=== PATIENT | male | born 1965 | race Caucasian/White ===

== ENCOUNTER → 2017-02-17 | Outpatient (CLI) | payer MEDICARE ==
[~2017-02-17] MED LIST: 'XANAX1 MG PO; ALBUTEROL2.5 MG/0.5 INH; ASPIRIN ADULT L81 M1 PO; ATENOLOL50 M1 PO; FISH OIL500 M2 PO; FLUTICASON0.05 MG/AC NAS; LASIX40 MG PO; LISINOPRIL5 MG PO; METFORMIN1000 MG PO; MS CONTIN15 MG PO; NEURONTIN300 MG PO; PERCOCET 325 MG1 TA7 PO; PRILOSEC20 M1 PO; SIMVASTATIN40 MG PO; SYMBICORT1 AE1 INH; THE MEDICINE SH10 M1 PO
[2017-02-17 10:02] LABS: HEMOGLOBIN A1c 7.4 % (4.8-5.6)
[2017-02-19 12:07] LABS: TESTOSTERONE FREE, (DIRECT) 9.2 pg/mL (7.2-24.0)
== END | disposition home or self-care (01) ==
LOC: LAB 09:02
PROVIDERS: Internal Medicine
DX: E11.9 Type 2 diabetes mellitus without complications (principal)

== ENCOUNTER 2017-03-25 19:01 | Emergency (ER) | payer MEDICARE ==
[~2017-03-25] VITALS: Ht 172.7 cm; Wt 121.6 kg
[~2017-03-25 19:01] MED LIST changes: -CEFADROXIL500 M1 PO; -LUNESTA1 M1 PO; -VITAMIN D33000 UNIT PO
[2017-03-25] MEDS ORDERED: VITAMIN D33000 UNIT PO (19:12)
[2017-03-25] MEDS ORDERED: LUNESTA1 M1 PO (19:13)
[2017-03-25] MEDS ORDERED: CEFADROXIL500 M1 PO (19:58)
== END 2017-03-25 20:39 | disposition home or self-care (01) ==
LOC: ED 19:01
DX: S61.213A Laceration without foreign body of left middle finger without damage to nail, initial encounter (principal); F17.200 Nicotine dependence, unspecified, uncomplicated; Z79.82 Long term (current) use of aspirin; Z79.899 Other long term (current) drug therapy; Z88.0 Allergy status to penicillin; Z88.2 Allergy status to sulfonamides; Z91.030 Bee allergy status; X58.XXXA Exposure to other specified factors, initial encounter; Y93.89 Activity, other specified; Y92.9 Unspecified place or not applicable; Y99.9 Unspecified external cause status

== ENCOUNTER → 2017-03-25 | Outpatient (CLI) | payer MEDICARE ==
[~2017-03-25] MED LIST changes: +CEFADROXIL500 M1 PO; +LUNESTA1 M1 PO; +VITAMIN D33000 UNIT PO
== END | disposition home or self-care (01) ==
LOC: RESCLI 03:45
DX: J44.9 Chronic obstructive pulmonary disease, unspecified (principal); E11.9 Type 2 diabetes mellitus without complications; Z88.0 Allergy status to penicillin; Z91.038 Other insect allergy status

== ENCOUNTER → 2017-04-29 | Outpatient (CLI) | payer MEDICARE ==
[~2017-04-29] MED LIST changes: +CEFADROXIL500 M1 PO; +LUNESTA1 M1 PO; +VITAMIN D33000 UNIT PO
== END | disposition home or self-care (01) ==
LOC: RESCLI 02:00
DX: E11.9 Type 2 diabetes mellitus without complications (principal); E29.1 Testicular hypofunction; F41.9 Anxiety disorder, unspecified; Z88.0 Allergy status to penicillin; Z88.2 Allergy status to sulfonamides; Z88.1 Allergy status to other antibiotic agents; Z91.030 Bee allergy status

== ENCOUNTER → 2017-07-01 | Outpatient (CLI) | payer MEDICARE | END | disposition home or self-care (01) | LOC: RESCLI 04:44 | DX: E11.9 Type 2 diabetes mellitus without complications (principal); E29.1 Testicular hypofunction; S83.92XA Sprain of unspecified site of left knee, initial encounter; X58.XXXA Exposure to other specified factors, initial encounter; Y93.89 Activity, other specified; Y92.89 Other specified places as the place of occurrence of the external cause; Y99.8 Other external cause status ==

== ENCOUNTER → 2017-08-18 | Outpatient (CLI) | payer MEDICARE | END | disposition home or self-care (01) | LOC: LAB 08:51 | DX: E11.9 Type 2 diabetes mellitus without complications (principal) ==

== ENCOUNTER → 2017-08-25 | Outpatient (CLI) | payer MEDICARE | END | disposition home or self-care (01) | LOC: RESCLI 01:30 | DX: J44.9 Chronic obstructive pulmonary disease, unspecified (principal); E11.9 Type 2 diabetes mellitus without complications; I25.10 Atherosclerotic heart disease of native coronary artery without angina pectoris; I10 Essential (primary) hypertension; E78.5 Hyperlipidemia, unspecified; K21.9 Gastro-esophageal reflux disease without esophagitis; F17.200 Nicotine dependence, unspecified, uncomplicated ==

== ENCOUNTER → 2017-09-02 | Outpatient (CLI) | payer MEDICARE | END | disposition home or self-care (01) | LOC: WOUNDCARE 06:45 → RESCLI 06:45 | DX: Z23 Encounter for immunization (principal); E11.9 Type 2 diabetes mellitus without complications; F41.9 Anxiety disorder, unspecified; E78.5 Hyperlipidemia, unspecified; Z88.0 Allergy status to penicillin; Z88.2 Allergy status to sulfonamides; Z88.1 Allergy status to other antibiotic agents; Z91.038 Other insect allergy status ==

== ENCOUNTER → 2017-11-25 | Outpatient (CLI) | payer MEDICARE | END | disposition home or self-care (01) | LOC: RESCLI 01:01 | DX: E11.9 Type 2 diabetes mellitus without complications (principal); I10 Essential (primary) hypertension; J44.9 Chronic obstructive pulmonary disease, unspecified; E78.5 Hyperlipidemia, unspecified; J06.9 Acute upper respiratory infection, unspecified; F41.9 Anxiety disorder, unspecified; F17.210 Nicotine dependence, cigarettes, uncomplicated ==

== ENCOUNTER → 2017-12-29 | Outpatient (CLI) | payer MEDICARE | END | disposition home or self-care (01) | LOC: LAB 08:43 | DX: E11.9 Type 2 diabetes mellitus without complications (principal) ==

== ENCOUNTER → 2018-01-20 | Outpatient (CLI) | payer MEDICARE | END | disposition home or self-care (01) | LOC: RESCLI 01:30 | DX: J44.9 Chronic obstructive pulmonary disease, unspecified (principal); E11.9 Type 2 diabetes mellitus without complications; I10 Essential (primary) hypertension; E29.1 Testicular hypofunction; J06.9 Acute upper respiratory infection, unspecified; F41.9 Anxiety disorder, unspecified; F17.200 Nicotine dependence, unspecified, uncomplicated; Z88.0 Allergy status to penicillin ==

== ENCOUNTER → 2018-04-14 | Outpatient (CLI) | payer MEDICARE | END | disposition home or self-care (01) | LOC: RESCLI 04:27 | DX: J44.9 Chronic obstructive pulmonary disease, unspecified (principal); J06.9 Acute upper respiratory infection, unspecified; E11.9 Type 2 diabetes mellitus without complications; I10 Essential (primary) hypertension; E78.5 Hyperlipidemia, unspecified; E29.1 Testicular hypofunction; F41.9 Anxiety disorder, unspecified; G47.30 Sleep apnea, unspecified ==

== ENCOUNTER → 2018-09-18 | Outpatient (CLI) | payer OTHER ==
[2018-09-18 10:10] LABS: HEMATOCRIT 46.3 % (42.0-52.0); HEMOGLOBIN 15.5 g/dl (14.0-18.0); MEAN CELL VOLUME 88.5 fl (80.0-94.0); MEAN CORPUSCULAR HGB 29.6 pg (27.0-31.0); MEAN CORPUSCULAR HGB CONC 33.5 g/dl (33.0-37.0); MEAN PLATELET VOLUME 9.8 fl (9.6-12.3); RED BLOOD COUNT 5.23 10*6/uL (4.50-5.90); RED CELL DISTRI WIDTH 12.6 % (0-14.5); WHITE BLOOD COUNT 7.8 10*3/uL (4.8-10.8)
[2018-09-18 10:38] LABS: ALKALINE PHOSPHATASE 94 U/L (45-117); BUN 13 mg/dl (7-24); CHLORIDE 100 mmol/L (98-107); CHOLESTEROL 130 mg/dL (<200); CREATININE 0.98 mg/dL (0.70-1.30); HDL CHOLESTEROL 26 mg/dl (40-60); LDL CHOLESTEROL 74 mg/dL (9-159); POTASSIUM 3.7 mmol/L (3.5-5.1); SGOT/AST 24 IU/L (3-35); SGPT/ALT 38 U/L (12-78); SODIUM 138 mmol/L (136-145); TOTAL PROTEIN 7.1 gm/dL (6.4-8.2); TRIGLYCERIDES 149 mg/dl (<150); VLDL CHOLESTEROL 30 mg/dL (6-40)
== END | disposition home or self-care (01) ==
LOC: LAB 09:22
PROVIDERS: Student in an Organized Health Care Education/Training Program
DX: E11.9 Type 2 diabetes mellitus without complications (principal); E78.5 Hyperlipidemia, unspecified

== ENCOUNTER → 2019-01-06 | Outpatient (CLI) | payer OTHER | END | disposition home or self-care (01) | LOC: RESCLI 01:28 | DX: I11.0 Hypertensive heart disease with heart failure (principal); I50.9 Heart failure, unspecified; J44.9 Chronic obstructive pulmonary disease, unspecified; E78.5 Hyperlipidemia, unspecified; E11.42 Type 2 diabetes mellitus with diabetic polyneuropathy; K21.9 Gastro-esophageal reflux disease without esophagitis; I25.10 Atherosclerotic heart disease of native coronary artery without angina pectoris; F33.9 Major depressive disorder, recurrent, unspecified; J30.2 Other seasonal allergic rhinitis; G47.33 Obstructive sleep apnea (adult) (pediatric); M54.9 Dorsalgia, unspecified; G89.29 Other chronic pain; E55.9 Vitamin D deficiency, unspecified; F17.210 Nicotine dependence, cigarettes, uncomplicated; Z79.82 Long term (current) use of aspirin; Z79.899 Other long term (current) drug therapy; Z88.0 Allergy status to penicillin; Z88.2 Allergy status to sulfonamides; Z91.030 Bee allergy status ==

== ENCOUNTER → 2019-05-26 | Outpatient (CLI) | payer OTHER ==
[2019-05-26 08:46] LABS: BASO % 0.5 % (0.0-1.0); EOS # 0.4 10*3/uL (0.0-0.4); EOS % 4.7 % (1.0-4.0); HEMATOCRIT 42.7 % (42.0-52.0); HEMOGLOBIN 14.2 g/dl (14.0-18.0); LYMPH # 2.7 10*3/uL (1.3-4.4); LYMPH % 35.6 % (27.0-41.0); MEAN CELL VOLUME 91.2 fl (80.0-94.0); MEAN CORPUSCULAR HGB 30.3 pg (27.0-31.0); MEAN CORPUSCULAR HGB CONC 33.3 g/dl (33.0-37.0); MONO # 0.6 10*3/uL (0.1-1.0); MONO % 7.9 % (3.0-9.0); NEUT # 3.8 10*3/uL (2.3-7.9); NEUT % 50.2 % (47.0-73.0); PLATELET COUNT AUTOMATED 173 10*3/uL (130-400); RED BLOOD COUNT 4.68 10*6/uL (4.50-5.90); WHITE BLOOD COUNT 7.5 10*3/uL (4.8-10.8)
[2019-05-26 09:17] LABS: BUN 16 mg/dl (7-24); CHLORIDE 103 mmol/L (98-107); CHOLESTEROL 121 mg/dL (<200); HDL CHOLESTEROL 19 mg/dl (40-60); POTASSIUM 3.9 mmol/L (3.5-5.1); SODIUM 138 mmol/L (136-145); TRIGLYCERIDES 480 mg/dl (<150)
== END | disposition home or self-care (01) ==
LOC: LAB 08:10
PROVIDERS: Internal Medicine
DX: E55.9 Vitamin D deficiency, unspecified (principal); I11.0 Hypertensive heart disease with heart failure; I50.9 Heart failure, unspecified; I25.10 Atherosclerotic heart disease of native coronary artery without angina pectoris; E11.9 Type 2 diabetes mellitus without complications; E78.5 Hyperlipidemia, unspecified; Z79.899 Other long term (current) drug therapy

== ENCOUNTER → 2019-06-03 | Outpatient (CLI) | payer OTHER | END | disposition home or self-care (01) | LOC: RESCLI 02:30 | DX: E11.40 Type 2 diabetes mellitus with diabetic neuropathy, unspecified (principal); I25.10 Atherosclerotic heart disease of native coronary artery without angina pectoris; I10 Essential (primary) hypertension; G47.33 Obstructive sleep apnea (adult) (pediatric); F41.9 Anxiety disorder, unspecified; J44.9 Chronic obstructive pulmonary disease, unspecified; K21.9 Gastro-esophageal reflux disease without esophagitis; J30.2 Other seasonal allergic rhinitis; E55.9 Vitamin D deficiency, unspecified; E78.1 Pure hyperglyceridemia; E66.9 Obesity, unspecified; I11.0 Hypertensive heart disease with heart failure; I50.9 Heart failure, unspecified; Z79.4 Long term (current) use of insulin; Z79.899 Other long term (current) drug therapy; Z91.038 Other insect allergy status ==

== ENCOUNTER → 2019-09-23 | Outpatient (CLI) | payer OTHER | END | disposition home or self-care (01) | LOC: RESCLI 00:37 | DX: I25.10 Atherosclerotic heart disease of native coronary artery without angina pectoris (principal); E78.1 Pure hyperglyceridemia; G89.29 Other chronic pain; K21.9 Gastro-esophageal reflux disease without esophagitis; I11.0 Hypertensive heart disease with heart failure; I50.9 Heart failure, unspecified; E55.9 Vitamin D deficiency, unspecified; E11.40 Type 2 diabetes mellitus with diabetic neuropathy, unspecified; F41.9 Anxiety disorder, unspecified; J44.9 Chronic obstructive pulmonary disease, unspecified; J30.2 Other seasonal allergic rhinitis; E66.01 Morbid (severe) obesity due to excess calories; B02.9 Zoster without complications; F17.200 Nicotine dependence, unspecified, uncomplicated; Z91.038 Other insect allergy status; Z79.899 Other long term (current) drug therapy ==

== ENCOUNTER → 2019-10-25 | Outpatient (CLI) | payer OTHER ==
[2019-10-25 08:51] LABS: BASO % 0.5 % (0.0-1.0); EOS # 0.2 10*3/uL (0.0-0.4); EOS % 2.2 % (1.0-4.0); HEMOGLOBIN 14.9 g/dl (14.0-18.0); LYMPH # 3.1 10*3/uL (1.3-4.4); LYMPH % 39.9 % (27.0-41.0); MEAN CELL VOLUME 91.5 fl (80.0-94.0); MEAN CORPUSCULAR HGB 30.3 pg (27.0-31.0); MEAN CORPUSCULAR HGB CONC 33.1 g/dl (33.0-37.0); MEAN PLATELET VOLUME 10.2 fl (9.6-12.3); MONO # 0.6 10*3/uL (0.1-1.0); MONO % 7.5 % (3.0-9.0); NEUT # 3.8 10*3/uL (2.3-7.9); NEUT % 49.3 % (47.0-73.0); PLATELET COUNT AUTOMATED 193 10*3/uL (130-400); RED BLOOD COUNT 4.92 10*6/uL (4.50-5.90); RED CELL DISTRI WIDTH 12.2 % (0-14.5); WHITE BLOOD COUNT 7.7 10*3/uL (4.8-10.8)
[2019-10-25 09:30] LABS: ALBUMIN 3.8 gm/dl (3.1-4.5); ALKALINE PHOSPHATASE 104 U/L (45-117); BUN 13 mg/dl (7-24); CHLORIDE 102 mmol/L (98-107); CHOLESTEROL 128 mg/dL (<200); CREATININE 1.03 mg/dL (0.70-1.30); HDL CHOLESTEROL 24 mg/dl (40-60); LDL CHOLESTEROL 73 mg/dL (9-159); POTASSIUM 3.5 mmol/L (3.5-5.1); SGOT/AST 27 IU/L (3-35); SGPT/ALT 45 U/L (12-78); SODIUM 138 mmol/L (136-145); TRIGLYCERIDES 155 mg/dl (<150); VLDL CHOLESTEROL 31 mg/dL (6-40)
== END | disposition home or self-care (01) ==
LOC: LAB 08:08
PROVIDERS: Student in an Organized Health Care Education/Training Program
DX: E11.40 Type 2 diabetes mellitus with diabetic neuropathy, unspecified (principal); E78.1 Pure hyperglyceridemia; E55.9 Vitamin D deficiency, unspecified

== ENCOUNTER → 2019-10-28 | Outpatient (CLI) | payer OTHER | END | disposition home or self-care (01) | LOC: RESCLI 00:55 | DX: I11.0 Hypertensive heart disease with heart failure (principal); I50.9 Heart failure, unspecified; J44.9 Chronic obstructive pulmonary disease, unspecified; E78.1 Pure hyperglyceridemia; F41.9 Anxiety disorder, unspecified; K21.9 Gastro-esophageal reflux disease without esophagitis; E55.9 Vitamin D deficiency, unspecified; I25.10 Atherosclerotic heart disease of native coronary artery without angina pectoris; G89.29 Other chronic pain; J30.2 Other seasonal allergic rhinitis; E11.40 Type 2 diabetes mellitus with diabetic neuropathy, unspecified; Z91.038 Other insect allergy status; Z79.899 Other long term (current) drug therapy; Z88.0 Allergy status to penicillin; Z88.8 Allergy status to other drugs, medicaments and biological substances ==

== ENCOUNTER → 2020-05-11 | Outpatient (CLI) | payer OTHER ==
[2020-05-11 09:50] LABS: BASO # 0.1 10*3/uL (0.0-0.1); BASO % 0.6 % (0.0-1.0); EOS # 0.2 10*3/uL (0.0-0.4); EOS % 2.7 % (1.0-4.0); HEMATOCRIT 43.1 % (42.0-52.0); LYMPH # 2.6 10*3/uL (1.3-4.4); MEAN CELL VOLUME 90.7 fl (80.0-94.0); MEAN CORPUSCULAR HGB 30.3 pg (27.0-31.0); MEAN CORPUSCULAR HGB CONC 33.4 g/dl (33.0-37.0); MEAN PLATELET VOLUME 10.4 fl (9.6-12.3); MONO # 0.7 10*3/uL (0.1-1.0); MONO % 8.8 % (3.0-9.0); NEUT # 4.2 10*3/uL (2.3-7.9); NEUT % 53.7 % (47.0-73.0); PLATELET COUNT AUTOMATED 180 10*3/uL (130-400); RED BLOOD COUNT 4.75 10*6/uL (4.50-5.90); WHITE BLOOD COUNT 7.8 10*3/uL (4.8-10.8)
[2020-05-11 10:39] LABS: ALBUMIN 3.8 gm/dl (3.1-4.5); ALKALINE PHOSPHATASE 112 U/L (45-117); BUN 12 mg/dl (7-24); CHLORIDE 104 mmol/L (98-107); CHOLESTEROL 135 mg/dL (<200); CREATININE 0.93 mg/dL (0.70-1.30); HDL CHOLESTEROL 21 mg/dl (40-60); LDL CHOLESTEROL 45 mg/dL (9-159); POTASSIUM 3.9 mmol/L (3.5-5.1); SGOT/AST 30 IU/L (3-35); SGPT/ALT 48 U/L (12-78); SODIUM 140 mmol/L (136-145); TOTAL PROTEIN 6.9 gm/dL (6.4-8.2); TRIGLYCERIDES 343 mg/dl (<150); VLDL CHOLESTEROL 69 mg/dL (6-40)
== END | disposition home or self-care (01) ==
LOC: LAB 08:38
PROVIDERS: Internal Medicine
DX: I10 Essential (primary) hypertension (principal); Z79.899 Other long term (current) drug therapy

== ENCOUNTER → 2020-05-12 | Outpatient (CLI) | payer OTHER | END | disposition home or self-care (01) | LOC: RESCLI 01:18 | DX: B02.9 Zoster without complications (principal); J44.9 Chronic obstructive pulmonary disease, unspecified; F41.9 Anxiety disorder, unspecified; G89.29 Other chronic pain; E11.40 Type 2 diabetes mellitus with diabetic neuropathy, unspecified; I25.10 Atherosclerotic heart disease of native coronary artery without angina pectoris; E55.9 Vitamin D deficiency, unspecified; J30.2 Other seasonal allergic rhinitis; I11.0 Hypertensive heart disease with heart failure; I50.9 Heart failure, unspecified; K21.9 Gastro-esophageal reflux disease without esophagitis; E78.1 Pure hyperglyceridemia; M25.559 Pain in unspecified hip; Z91.038 Other insect allergy status; Z79.899 Other long term (current) drug therapy; Z79.84 Long term (current) use of oral hypoglycemic drugs; Z79.82 Long term (current) use of aspirin; Z88.8 Allergy status to other drugs, medicaments and biological substances; F17.200 Nicotine dependence, unspecified, uncomplicated ==

== ENCOUNTER → 2020-07-04 | Outpatient (CLI) | payer OTHER | END | disposition home or self-care (01) | LOC: RESCLI 01:46 | PROVIDERS: ATTEND Internal Medicine | DX: J44.1 Chronic obstructive pulmonary disease with (acute) exacerbation (principal); I25.10 Atherosclerotic heart disease of native coronary artery without angina pectoris; E55.9 Vitamin D deficiency, unspecified; J30.2 Other seasonal allergic rhinitis; I11.0 Hypertensive heart disease with heart failure; I50.9 Heart failure, unspecified; K21.9 Gastro-esophageal reflux disease without esophagitis; E78.1 Pure hyperglyceridemia; B02.9 Zoster without complications; G89.29 Other chronic pain; M25.559 Pain in unspecified hip; F41.9 Anxiety disorder, unspecified; E11.40 Type 2 diabetes mellitus with diabetic neuropathy, unspecified; F17.200 Nicotine dependence, unspecified, uncomplicated; J44.9 Chronic obstructive pulmonary disease, unspecified; Z91.038 Other insect allergy status; Z79.82 Long term (current) use of aspirin; Z79.899 Other long term (current) drug therapy; Z88.8 Allergy status to other drugs, medicaments and biological substances; Z98.890 Other specified postprocedural states ==

== ENCOUNTER → 2020-10-09 | Outpatient (CLI) | payer OTHER ==
[2020-10-09 09:22] LABS: BILIRUBIN Negative (Negative); BLOOD Trace-Lysed (Negative); CLARITY Clear (Clear); COLOR Yellow (Yellow); GLUCOSE Negative (Negative); KETONE Negative (Negative); LEUKO ESTERASE Negative (Negative); NITRITE Negative (Negative); PH 5.5 (4.5-8.0); SPECIFIC GRAVITY 1.015 (1.001-1.030)
[2020-10-09 09:31] LABS: ALBUMIN 3.7 gm/dl (3.1-4.5); ALKALINE PHOSPHATASE 123 U/L (45-117); BUN 17 mg/dl (7-24); CHLORIDE 101 mmol/L (98-107); CREATININE 1.01 mg/dL (0.70-1.30); SGOT/AST 21 IU/L (3-35); SGPT/ALT 41 U/L (12-78); SODIUM 136 mmol/L (136-145); TOTAL PROTEIN 7.2 gm/dL (6.4-8.2)
[2020-10-09 09:39] LABS: WBC 0-2 wbc/hpf (0-5)
== END | disposition home or self-care (01) ==
LOC: LAB 08:38
PROVIDERS: ATTEND Internal Medicine
DX: E11.40 Type 2 diabetes mellitus with diabetic neuropathy, unspecified (principal)

== ENCOUNTER → 2021-01-12 | Outpatient (CLI) | payer OTHER | END | disposition home or self-care (01) | LOC: RESCLI 01:11 | PROVIDERS: ATTEND Internal Medicine | DX: E11.65 Type 2 diabetes mellitus with hyperglycemia (principal); G62.9 Polyneuropathy, unspecified; I11.0 Hypertensive heart disease with heart failure; I25.10 Atherosclerotic heart disease of native coronary artery without angina pectoris; J44.9 Chronic obstructive pulmonary disease, unspecified; K21.9 Gastro-esophageal reflux disease without esophagitis; E66.01 Morbid (severe) obesity due to excess calories; E78.5 Hyperlipidemia, unspecified; I50.9 Heart failure, unspecified; F17.210 Nicotine dependence, cigarettes, uncomplicated; Z71.6 Tobacco abuse counseling; Z68.41 Body mass index [BMI] 40.0-44.9, adult; Z95.0 Presence of cardiac pacemaker; Z79.4 Long term (current) use of insulin; Z79.82 Long term (current) use of aspirin; Z79.899 Other long term (current) drug therapy; Z88.0 Allergy status to penicillin; Z88.8 Allergy status to other drugs, medicaments and biological substances ==

== ENCOUNTER → 2021-02-02 | Outpatient (CLI) | payer OTHER ==
[2021-02-02 07:30] LABS: BASO # 0.1 10*3/uL (0.0-0.1); BASO % 0.7 % (0.0-1.0); EOS # 0.2 10*3/uL (0.0-0.4); EOS % 2.2 % (1.0-4.0); LYMPH # 2.9 10*3/uL (1.3-4.4); LYMPH % 40.6 % (27.0-41.0); MEAN CORPUSCULAR HGB 30.5 pg (27.0-31.0); MEAN CORPUSCULAR HGB CONC 33.9 g/dl (33.0-37.0); MEAN PLATELET VOLUME 9.7 fl (9.6-12.3); MONO # 0.6 10*3/uL (0.1-1.0); MONO % 8.1 % (3.0-9.0); NEUT # 3.4 10*3/uL (2.3-7.9); NEUT % 47.7 % (47.0-73.0); PLATELET COUNT AUTOMATED 192 10*3/uL (130-400); RED BLOOD COUNT 5.11 10*6/uL (4.50-5.90); RED CELL DISTRI WIDTH 12.6 % (0-14.5); WHITE BLOOD COUNT 7.2 10*3/uL (4.8-10.8)
[2021-02-02 08:00] LABS: ALBUMIN 3.7 gm/dl (3.1-4.5); BUN 18 mg/dl (7-24); CHLORIDE 100 mmol/L (98-107); CREATININE 1.05 mg/dL (0.70-1.30); POTASSIUM 3.9 mmol/L (3.5-5.1); SGOT/AST 19 IU/L (3-35); SGPT/ALT 43 U/L (12-78); SODIUM 135 mmol/L (136-145)
[2021-02-02 08:11] LABS: ALKALINE PHOSPHATASE 118 U/L (45-117); CHOLESTEROL 130 mg/dL (<200); HDL CHOLESTEROL 23 mg/dl (40-60); TRIGLYCERIDES 471 mg/dl (<150)
[2021-02-02 08:26] LABS: VITAMIN D, 25-HYDROXY 31.8 ng/mL (30-100)
== END | disposition home or self-care (01) ==
LOC: LAB 07:12
PROVIDERS: Hospitalist; ATTEND Internal Medicine Nephrology
DX: E11.65 Type 2 diabetes mellitus with hyperglycemia (principal); E55.9 Vitamin D deficiency, unspecified

== ENCOUNTER → 2021-02-06 | Outpatient (CLI) | payer OTHER | END | disposition home or self-care (01) | LOC: RESCLI 00:27 | PROVIDERS: ATTEND Internal Medicine | DX: G89.29 Other chronic pain (principal); J44.9 Chronic obstructive pulmonary disease, unspecified; F41.9 Anxiety disorder, unspecified; E11.40 Type 2 diabetes mellitus with diabetic neuropathy, unspecified; I25.10 Atherosclerotic heart disease of native coronary artery without angina pectoris; E55.9 Vitamin D deficiency, unspecified; J30.2 Other seasonal allergic rhinitis; I10 Essential (primary) hypertension; K21.9 Gastro-esophageal reflux disease without esophagitis; E78.1 Pure hyperglyceridemia; M25.559 Pain in unspecified hip; G62.9 Polyneuropathy, unspecified; E11.65 Type 2 diabetes mellitus with hyperglycemia; Z79.82 Long term (current) use of aspirin; Z91.038 Other insect allergy status; Z79.899 Other long term (current) drug therapy; Z95.1 Presence of aortocoronary bypass graft; Z98.890 Other specified postprocedural states; Z88.0 Allergy status to penicillin ==

== ENCOUNTER → 2021-02-13 | Outpatient (CLI) | payer OTHER | END | disposition home or self-care (01) | LOC: RESCLI 02:12 | PROVIDERS: ATTEND Emergency Medicine | DX: E11.65 Type 2 diabetes mellitus with hyperglycemia (principal); G62.9 Polyneuropathy, unspecified; I10 Essential (primary) hypertension; I25.10 Atherosclerotic heart disease of native coronary artery without angina pectoris; J44.9 Chronic obstructive pulmonary disease, unspecified; K21.9 Gastro-esophageal reflux disease without esophagitis; E66.01 Morbid (severe) obesity due to excess calories; F17.210 Nicotine dependence, cigarettes, uncomplicated; E78.1 Pure hyperglyceridemia; J30.2 Other seasonal allergic rhinitis; F32.9 Major depressive disorder, single episode, unspecified; E55.9 Vitamin D deficiency, unspecified; Z79.4 Long term (current) use of insulin; Z68.41 Body mass index [BMI] 40.0-44.9, adult; Z95.0 Presence of cardiac pacemaker; Z71.6 Tobacco abuse counseling; Z79.899 Other long term (current) drug therapy; Z79.82 Long term (current) use of aspirin; Z88.0 Allergy status to penicillin; Z88.8 Allergy status to other drugs, medicaments and biological substances; Z91.030 Bee allergy status ==

== ENCOUNTER → 2021-03-21 | Outpatient (CLI) | payer OTHER | END | disposition home or self-care (01) | LOC: RESCLI 03:24 | PROVIDERS: ATTEND Internal Medicine | DX: E11.65 Type 2 diabetes mellitus with hyperglycemia (principal); G62.9 Polyneuropathy, unspecified; I10 Essential (primary) hypertension; J44.9 Chronic obstructive pulmonary disease, unspecified; K21.9 Gastro-esophageal reflux disease without esophagitis; F17.210 Nicotine dependence, cigarettes, uncomplicated; E78.1 Pure hyperglyceridemia; J30.2 Other seasonal allergic rhinitis; E55.9 Vitamin D deficiency, unspecified; I25.10 Atherosclerotic heart disease of native coronary artery without angina pectoris; F32.9 Major depressive disorder, single episode, unspecified; G89.29 Other chronic pain; E66.9 Obesity, unspecified; Z79.4 Long term (current) use of insulin; Z95.0 Presence of cardiac pacemaker; Z71.6 Tobacco abuse counseling; Z91.030 Bee allergy status; Z98.890 Other specified postprocedural states; Z95.1 Presence of aortocoronary bypass graft; Z88.0 Allergy status to penicillin; Z88.8 Allergy status to other drugs, medicaments and biological substances ==

== ENCOUNTER → 2021-10-08 | Outpatient (CLI) | payer OTHER ==
[2021-10-08 07:35] LABS: BASO # 0.1 10*3/uL (0.0-0.1); BASO % 0.9 % (0.0-1.0); EOS # 0.1 10*3/uL (0.0-0.4); EOS % 1.9 % (1.0-4.0); HEMATOCRIT 49.3 % (42.0-52.0); LYMPH # 2.7 10*3/uL (1.3-4.4); LYMPH % 40.4 % (27.0-41.0); MEAN CELL VOLUME 90.3 fl (80.0-94.0); MEAN CORPUSCULAR HGB 30.6 pg (27.0-31.0); MEAN CORPUSCULAR HGB CONC 33.9 g/dl (33.0-37.0); MEAN PLATELET VOLUME 9.3 fl (9.6-12.3); MONO # 0.5 10*3/uL (0.1-1.0); MONO % 7.7 % (3.0-9.0); NEUT # 3.2 10*3/uL (2.3-7.9); NEUT % 47.9 % (47.0-73.0); PLATELET COUNT AUTOMATED 211 10*3/uL (130-400); RED BLOOD COUNT 5.46 10*6/uL (4.50-5.90); RED CELL DISTRI WIDTH 13.4 % (0-14.5); WHITE BLOOD COUNT 6.7 10*3/uL (4.8-10.8)
[2021-10-08 08:05] LABS: ALBUMIN 3.8 gm/dl (3.1-4.5); ALKALINE PHOSPHATASE 99 U/L (45-117); BUN 14 mg/dl (7-24); CHLORIDE 103 mmol/L (98-107); CREATININE 1.02 mg/dL (0.70-1.30); POTASSIUM 3.7 mmol/L (3.5-5.1); SGOT/AST 18 IU/L (3-35); SGPT/ALT 38 U/L (12-78); SODIUM 138 mmol/L (136-145); TOTAL PROTEIN 7.2 gm/dL (6.4-8.2)
== END | disposition home or self-care (01) ==
LOC: LAB 07:17
PROVIDERS: ATTEND Internal Medicine Clinical Cardiac Electrophysiology
DX: I48.91 Unspecified atrial fibrillation (principal)

== ENCOUNTER → 2022-02-18 | Outpatient (CLI) | payer OTHER ==
[2022-02-18 09:11] LABS: BASO % 0.6 % (0.0-1.0); EOS # 0.1 10*3/uL (0.0-0.4); EOS % 1.6 % (1.0-4.0); LYMPH # 2.2 10*3/uL (1.3-4.4); LYMPH % 33.2 % (27.0-41.0); MEAN CELL VOLUME 89.5 fl (80.0-94.0); MEAN CORPUSCULAR HGB 30.5 pg (27.0-31.0); MEAN CORPUSCULAR HGB CONC 34.1 g/dl (33.0-37.0); MONO # 0.6 10*3/uL (0.1-1.0); MONO % 8.7 % (3.0-9.0); NEUT # 3.7 10*3/uL (2.3-7.9); NEUT % 54.6 % (47.0-73.0); PLATELET COUNT AUTOMATED 177 10*3/uL (130-400); RED BLOOD COUNT 5.14 10*6/uL (4.50-5.90); WHITE BLOOD COUNT 6.7 10*3/uL (4.8-10.8)
[2022-02-18 09:32] LABS: ALKALINE PHOSPHATASE 103 U/L (45-117); BUN 14 mg/dl (7-24); CHLORIDE 101 mmol/L (98-107); CHOLESTEROL 182 mg/dL (<200); CREATININE 0.99 mg/dL (0.70-1.30); POTASSIUM 3.4 mmol/L (3.5-5.1); SGOT/AST 18 IU/L (3-35); SGPT/ALT 31 U/L (12-78); SODIUM 138 mmol/L (136-145); TOTAL PROTEIN 6.9 gm/dL (6.4-8.2); TRIGLYCERIDES 730 mg/dl (<150)
== END | disposition home or self-care (01) ==
LOC: LAB 08:12
PROVIDERS: Hospitalist; ATTEND Internal Medicine Clinical Cardiac Electrophysiology
DX: E11.65 Type 2 diabetes mellitus with hyperglycemia (principal); I47.2 Ventricular tachycardia

== ENCOUNTER → 2022-02-20 | Outpatient (CLI) | payer OTHER ==
[2022-02-20 10:50] LABS: BILIRUBIN Negative (Negative); BLOOD 1+ (Negative); CLARITY Clear (Clear); COLOR Yellow (Yellow); GLUCOSE 3+ (Negative); KETONE Trace (Negative); LEUKO ESTERASE Negative (Negative); NITRITE Negative (Negative); PH 5.5 (4.5-8.0); SPECIFIC GRAVITY >= 1.030 (1.001-1.030)
[2022-02-20 11:02] LABS: RBC 16-20 rbc/hpf (0-2)
== END | disposition home or self-care (01) ==
LOC: RESCLI 02:56
PROVIDERS: Internal Medicine; ATTEND Emergency Medicine
DX: J44.9 Chronic obstructive pulmonary disease, unspecified (principal); K21.9 Gastro-esophageal reflux disease without esophagitis; E11.65 Type 2 diabetes mellitus with hyperglycemia; I11.0 Hypertensive heart disease with heart failure; I50.9 Heart failure, unspecified; E55.9 Vitamin D deficiency, unspecified; G62.9 Polyneuropathy, unspecified; J30.2 Other seasonal allergic rhinitis; F41.9 Anxiety disorder, unspecified; E78.5 Hyperlipidemia, unspecified; I25.10 Atherosclerotic heart disease of native coronary artery without angina pectoris; R30.0 Dysuria; E87.6 Hypokalemia; Z79.84 Long term (current) use of oral hypoglycemic drugs; Z79.899 Other long term (current) drug therapy; Z79.01 Long term (current) use of anticoagulants

== ENCOUNTER → 2022-03-04 | Outpatient (CLI) | payer OTHER ==
[2022-03-04 17:04] LABS: URIC ACID 7.5 mg/dL (3.5-7.2)
== END | disposition home or self-care (01) ==
LOC: RESCLI 15:47
PROVIDERS: ATTEND Internal Medicine Nephrology
DX: M79.671 Pain in right foot (principal); M79.641 Pain in right hand; M79.642 Pain in left hand; M79.674 Pain in right toe(s); F17.200 Nicotine dependence, unspecified, uncomplicated; Z88.0 Allergy status to penicillin; Z88.2 Allergy status to sulfonamides; Z88.8 Allergy status to other drugs, medicaments and biological substances; Z95.1 Presence of aortocoronary bypass graft; Z98.890 Other specified postprocedural states; Z79.82 Long term (current) use of aspirin; Z79.84 Long term (current) use of oral hypoglycemic drugs; Z79.899 Other long term (current) drug therapy

== ENCOUNTER → 2022-03-20 | Outpatient (CLI) | payer OTHER | END | disposition home or self-care (01) | LOC: RESCLI 01:49 | PROVIDERS: ATTEND Internal Medicine Nephrology | DX: J44.9 Chronic obstructive pulmonary disease, unspecified (principal); K21.9 Gastro-esophageal reflux disease without esophagitis; E11.65 Type 2 diabetes mellitus with hyperglycemia; I10 Essential (primary) hypertension; E55.9 Vitamin D deficiency, unspecified; G62.9 Polyneuropathy, unspecified; J30.2 Other seasonal allergic rhinitis; F41.9 Anxiety disorder, unspecified; E78.5 Hyperlipidemia, unspecified; I25.10 Atherosclerotic heart disease of native coronary artery without angina pectoris; I50.9 Heart failure, unspecified; M79.641 Pain in right hand; Z79.899 Other long term (current) drug therapy; Z98.890 Other specified postprocedural states; Z95.1 Presence of aortocoronary bypass graft; Z88.0 Allergy status to penicillin; Z88.8 Allergy status to other drugs, medicaments and biological substances ==

== ENCOUNTER → 2022-06-13 | Outpatient (CLI) | payer OTHER | END | disposition home or self-care (01) | LOC: RESCLI 08:41 | PROVIDERS: ATTEND Emergency Medicine | DX: I11.0 Hypertensive heart disease with heart failure (principal); J44.9 Chronic obstructive pulmonary disease, unspecified; K21.9 Gastro-esophageal reflux disease without esophagitis; E11.65 Type 2 diabetes mellitus with hyperglycemia; I11.9 Hypertensive heart disease without heart failure; I25.10 Atherosclerotic heart disease of native coronary artery without angina pectoris; E55.9 Vitamin D deficiency, unspecified; G62.9 Polyneuropathy, unspecified; E78.5 Hyperlipidemia, unspecified; I50.9 Heart failure, unspecified; M25.559 Pain in unspecified hip; G89.29 Other chronic pain; Z79.4 Long term (current) use of insulin; I48.91 Unspecified atrial fibrillation; G56.00 Carpal tunnel syndrome, unspecified upper limb; F17.200 Nicotine dependence, unspecified, uncomplicated; Z88.8 Allergy status to other drugs, medicaments and biological substances; Z88.0 Allergy status to penicillin; Z79.899 Other long term (current) drug therapy; Z79.82 Long term (current) use of aspirin; Z79.01 Long term (current) use of anticoagulants ==

== ENCOUNTER → 2022-07-05 | Outpatient (CLI) | payer OTHER | END | disposition home or self-care (01) | LOC: RAD 09:17 | PROVIDERS: ATTEND Internal Medicine | DX: G56.01 Carpal tunnel syndrome, right upper limb (principal) ==

== ENCOUNTER 2022-08-04 14:31 | Emergency (ER) | payer OTHER ==
[~2022-08-04] VITALS: Ht 172.7 cm; Wt 117.9 kg
== END 2022-08-04 17:19 | disposition home or self-care (01) ==
LOC: ED 14:31
DX: T63.441A Toxic effect of venom of bees, accidental (unintentional), initial encounter (principal); T78.2XXA Anaphylactic shock, unspecified, initial encounter; Z88.0 Allergy status to penicillin; Z88.2 Allergy status to sulfonamides; Z91.030 Bee allergy status; Z79.899 Other long term (current) drug therapy; Z79.82 Long term (current) use of aspirin; Y92.89 Other specified places as the place of occurrence of the external cause

== ENCOUNTER → 2022-09-09 | Outpatient (CLI) | payer OTHER | END | disposition home or self-care (01) | LOC: RESCLI 08:18 | PROVIDERS: ATTEND Internal Medicine | DX: I11.0 Hypertensive heart disease with heart failure (principal); I50.9 Heart failure, unspecified; E11.65 Type 2 diabetes mellitus with hyperglycemia; J30.2 Other seasonal allergic rhinitis; Z91.030 Bee allergy status; G62.9 Polyneuropathy, unspecified; I48.91 Unspecified atrial fibrillation; J44.9 Chronic obstructive pulmonary disease, unspecified; K21.9 Gastro-esophageal reflux disease without esophagitis; I10 Essential (primary) hypertension; E78.5 Hyperlipidemia, unspecified; I25.10 Atherosclerotic heart disease of native coronary artery without angina pectoris; F41.1 Generalized anxiety disorder; E55.9 Vitamin D deficiency, unspecified; G89.29 Other chronic pain; Z88.0 Allergy status to penicillin; Z88.2 Allergy status to sulfonamides; Z88.5 Allergy status to narcotic agent; F17.200 Nicotine dependence, unspecified, uncomplicated; Z82.49 Family history of ischemic heart disease and other diseases of the circulatory system; Z95.1 Presence of aortocoronary bypass graft; Z98.890 Other specified postprocedural states; Z79.82 Long term (current) use of aspirin; Z79.4 Long term (current) use of insulin; Z79.84 Long term (current) use of oral hypoglycemic drugs; Z79.899 Other long term (current) drug therapy ==

== ENCOUNTER → 2022-12-16 | Outpatient (CLI) | payer OTHER ==
[2022-12-16 08:21] LABS: CHOLESTEROL 201 mg/dL (<200)
[2022-12-16 08:23] LABS: TRIGLYCERIDES 629 mg/dl (<150)
[2022-12-17 12:08] LABS: CREATININE,URINE 81.7 mg/dL (Not Estab.)
== END | disposition home or self-care (01) ==
LOC: RESCLI 12-12 01:06 → LAB 02:33 → RESCLI 02:33 → LAB 09:44 → RESCLI 09:44
PROVIDERS: Internal Medicine Hematology & Oncology; ATTEND Emergency Medicine
DX: E11.65 Type 2 diabetes mellitus with hyperglycemia (principal); E78.5 Hyperlipidemia, unspecified

== ENCOUNTER → 2023-01-09 | Outpatient (CLI) | payer OTHER | END | disposition home or self-care (01) | LOC: RESCLI 00:42 | PROVIDERS: ATTEND Student in an Organized Health Care Education/Training Program | DX: J44.9 Chronic obstructive pulmonary disease, unspecified (principal); K21.9 Gastro-esophageal reflux disease without esophagitis; E55.9 Vitamin D deficiency, unspecified; E78.5 Hyperlipidemia, unspecified; E11.65 Type 2 diabetes mellitus with hyperglycemia; I25.10 Atherosclerotic heart disease of native coronary artery without angina pectoris; G62.9 Polyneuropathy, unspecified; J30.2 Other seasonal allergic rhinitis; F41.9 Anxiety disorder, unspecified; I11.0 Hypertensive heart disease with heart failure; I50.9 Heart failure, unspecified; G89.29 Other chronic pain; F17.210 Nicotine dependence, cigarettes, uncomplicated; Z91.030 Bee allergy status; Z79.01 Long term (current) use of anticoagulants; Z79.84 Long term (current) use of oral hypoglycemic drugs; Z98.890 Other specified postprocedural states; Z95.1 Presence of aortocoronary bypass graft; Z88.0 Allergy status to penicillin; Z88.2 Allergy status to sulfonamides; Z88.8 Allergy status to other drugs, medicaments and biological substances; Z79.899 Other long term (current) drug therapy ==

== ENCOUNTER → 2023-04-22 | Outpatient (CLI) | payer OTHER | END | disposition home or self-care (01) | LOC: RESCLI 12:24 | PROVIDERS: ATTEND Internal Medicine | DX: I25.10 Atherosclerotic heart disease of native coronary artery without angina pectoris (principal); E78.5 Hyperlipidemia, unspecified; G89.29 Other chronic pain; F41.9 Anxiety disorder, unspecified; J44.9 Chronic obstructive pulmonary disease, unspecified; K21.9 Gastro-esophageal reflux disease without esophagitis; E55.9 Vitamin D deficiency, unspecified; G62.9 Polyneuropathy, unspecified; Z79.4 Long term (current) use of insulin; E11.65 Type 2 diabetes mellitus with hyperglycemia; F32.9 Major depressive disorder, single episode, unspecified; I48.91 Unspecified atrial fibrillation; G56.00 Carpal tunnel syndrome, unspecified upper limb; G56.03 Carpal tunnel syndrome, bilateral upper limbs; I11.0 Hypertensive heart disease with heart failure; I50.9 Heart failure, unspecified; Z91.030 Bee allergy status; Z88.0 Allergy status to penicillin; Z88.2 Allergy status to sulfonamides; Z88.8 Allergy status to other drugs, medicaments and biological substances; Z82.49 Family history of ischemic heart disease and other diseases of the circulatory system; Z98.890 Other specified postprocedural states; Z79.899 Other long term (current) drug therapy ==

== ENCOUNTER → 2023-11-12 | Outpatient (CLI) | payer OTHER | END | disposition home or self-care (01) | LOC: RESCLI 03:11 | PROVIDERS: ATTEND Internal Medicine | DX: I25.10 Atherosclerotic heart disease of native coronary artery without angina pectoris (principal); I50.9 Heart failure, unspecified; E78.5 Hyperlipidemia, unspecified; I11.0 Hypertensive heart disease with heart failure; J44.9 Chronic obstructive pulmonary disease, unspecified; G47.33 Obstructive sleep apnea (adult) (pediatric); G89.29 Other chronic pain; F41.9 Anxiety disorder, unspecified; K21.9 Gastro-esophageal reflux disease without esophagitis; I48.91 Unspecified atrial fibrillation; E55.9 Vitamin D deficiency, unspecified; E11.65 Type 2 diabetes mellitus with hyperglycemia; G56.00 Carpal tunnel syndrome, unspecified upper limb; Z00.00 Encounter for general adult medical examination without abnormal findings; G62.9 Polyneuropathy, unspecified; J30.2 Other seasonal allergic rhinitis; F32.9 Major depressive disorder, single episode, unspecified; Z72.0 Tobacco use; Z79.899 Other long term (current) drug therapy; Z82.49 Family history of ischemic heart disease and other diseases of the circulatory system; Z95.1 Presence of aortocoronary bypass graft; Z88.8 Allergy status to other drugs, medicaments and biological substances; Z79.4 Long term (current) use of insulin; Z91.030 Bee allergy status ==

== ENCOUNTER → 2024-03-02 | Outpatient (CLI) | payer OTHER ==
[2024-03-02 08:53] LABS: BASO # 0.1 10*3/uL (0.0-0.1); BASO % 0.7 % (0.0-1.0); EOS # 0.1 10*3/uL (0.0-0.4); HEMATOCRIT 50.9 % (42.0-52.0); LYMPH # 2.7 10*3/uL (1.3-4.4); LYMPH % 37.4 % (27.0-41.0); MEAN CELL VOLUME 89.1 fl (80.0-94.0); MEAN CORPUSCULAR HGB 29.6 pg (27.0-31.0); MEAN CORPUSCULAR HGB CONC 33.2 g/dl (33.0-37.0); MEAN PLATELET VOLUME 9.7 fl (9.6-12.3); MONO # 0.6 10*3/uL (0.1-1.0); MONO % 8.3 % (3.0-9.0); NEUT # 3.6 10*3/uL (2.3-7.9); NEUT % 50.8 % (47.0-73.0); PLATELET COUNT AUTOMATED 192 10*3/uL (130-400); RED BLOOD COUNT 5.71 10*6/uL (4.50-5.90); RED CELL DISTRI WIDTH 12.9 % (0-14.5); WHITE BLOOD COUNT 7.1 10*3/uL (4.8-10.8)
[2024-03-02 09:02] LABS: URINE CREATININE RANDOM 16.46 mg/dL
[2024-03-02 09:40] LABS: ALKALINE PHOSPHATASE 96 U/L (46-116); BUN 23 mg/dl (9-23); CHLORIDE 103 mmol/L (98-107); POTASSIUM 3.8 mmol/L (3.4-5.1); SGPT/ALT 20 U/L (5-49); TOTAL PROTEIN 7.4 gm/dL (6.0-8.0)
[2024-03-02 09:54] LABS: VITAMIN D, 25-HYDROXY 45.4 ng/mL (30-100)
== END | disposition home or self-care (01) ==
LOC: LAB 08:17
PROVIDERS: Student in an Organized Health Care Education/Training Program; ATTEND Internal Medicine
DX: Z12.5 Encounter for screening for malignant neoplasm of prostate (principal); Z79.4 Long term (current) use of insulin

== ENCOUNTER → 2024-03-03 | Outpatient (CLI) | payer OTHER | END | disposition home or self-care (01) | LOC: RESCLI 03:35 | PROVIDERS: ATTEND Internal Medicine | DX: I11.0 Hypertensive heart disease with heart failure (principal); I50.9 Heart failure, unspecified; I25.10 Atherosclerotic heart disease of native coronary artery without angina pectoris; E78.5 Hyperlipidemia, unspecified; G89.29 Other chronic pain; F41.9 Anxiety disorder, unspecified; J44.9 Chronic obstructive pulmonary disease, unspecified; J30.2 Other seasonal allergic rhinitis; E55.9 Vitamin D deficiency, unspecified; E11.65 Type 2 diabetes mellitus with hyperglycemia; F32.9 Major depressive disorder, single episode, unspecified; I48.91 Unspecified atrial fibrillation; G56.03 Carpal tunnel syndrome, bilateral upper limbs; E11.40 Type 2 diabetes mellitus with diabetic neuropathy, unspecified; Z79.4 Long term (current) use of insulin; Z79.899 Other long term (current) drug therapy; Z88.8 Allergy status to other drugs, medicaments and biological substances ==

== ENCOUNTER 2024-04-25 19:53 | Emergency (ER) | payer OTHER ==
[~2024-04-25] VITALS: Ht 175.2 cm; Wt 113.4 kg
[2024-04-25] MEDS ORDERED: diphenhydrAMINE hydrochloride 50 MG/ML VIAL IV ONE (20:05)
[2024-04-25] MEDS ORDERED: FAMOTIDINE 50 ML IV ONE (20:05)
[2024-04-25] MEDS ORDERED: methylPREDNISolone sod succ 125 MG VIAL IV ONE (20:05)
== END 2024-04-25 21:58 | disposition home or self-care (01) ==
LOC: ED 19:53
DX: T63.441A Toxic effect of venom of bees, accidental (unintentional), initial encounter (principal); I10 Essential (primary) hypertension; E11.9 Type 2 diabetes mellitus without complications; Z88.0 Allergy status to penicillin; Z88.2 Allergy status to sulfonamides; Z91.030 Bee allergy status; Z98.890 Other specified postprocedural states; Y92.009 Unspecified place in unspecified non-institutional (private) residence as the place of occurrence of the external cause

== ENCOUNTER → 2024-09-08 | Outpatient (CLI) | payer OTHER | END | disposition home or self-care (01) | LOC: RESCLI 02:02 | PROVIDERS: ATTEND Student in an Organized Health Care Education/Training Program | DX: F41.9 Anxiety disorder, unspecified (principal); E11.9 Type 2 diabetes mellitus without complications; J30.9 Allergic rhinitis, unspecified; J44.9 Chronic obstructive pulmonary disease, unspecified; E11.65 Type 2 diabetes mellitus with hyperglycemia; I11.0 Hypertensive heart disease with heart failure; I50.9 Heart failure, unspecified; E78.5 Hyperlipidemia, unspecified; G62.9 Polyneuropathy, unspecified; K21.9 Gastro-esophageal reflux disease without esophagitis; G89.29 Other chronic pain; Z91.030 Bee allergy status; Z98.890 Other specified postprocedural states; Z79.899 Other long term (current) drug therapy; Z88.0 Allergy status to penicillin; Z88.2 Allergy status to sulfonamides; Z88.8 Allergy status to other drugs, medicaments and biological substances ==

== ENCOUNTER → 2025-03-07 | Outpatient (CLI) | payer OTHER | END | disposition home or self-care (01) | LOC: RESCLI 01:41 | PROVIDERS: ATTEND Internal Medicine | DX: E11.65 Type 2 diabetes mellitus with hyperglycemia (principal); J44.9 Chronic obstructive pulmonary disease, unspecified; F41.9 Anxiety disorder, unspecified; I11.0 Hypertensive heart disease with heart failure; I50.9 Heart failure, unspecified; G89.29 Other chronic pain; E78.5 Hyperlipidemia, unspecified; G62.9 Polyneuropathy, unspecified; K21.9 Gastro-esophageal reflux disease without esophagitis ==

== ENCOUNTER → 2025-05-24 | Outpatient (CLI) | payer OTHER | END | disposition home or self-care (01) | LOC: CT 07:35 | PROVIDERS: ATTEND Nurse Practitioner Psychiatric/Mental Health | DX: M51.16 Intervertebral disc disorders with radiculopathy, lumbar region (principal); M47.26 Other spondylosis with radiculopathy, lumbar region ==

== ENCOUNTER → 2025-05-25 | Outpatient (CLI) | payer OTHER ==
[2025-05-25 10:17] LABS: BUN 22 mg/dl (9-23); SGPT/ALT 26 U/L (5-49); VITAMIN D, 25-HYDROXY 43.1 ng/mL (30-100)
== END | disposition home or self-care (01) ==
LOC: LAB 00:25
PROVIDERS: ATTEND Internal Medicine
DX: E11.65 Type 2 diabetes mellitus with hyperglycemia (principal)

== ENCOUNTER → 2025-06-01 | Outpatient (CLI) | payer OTHER | END | disposition home or self-care (01) | LOC: RESCLI 02:18 | PROVIDERS: ATTEND Internal Medicine | DX: E11.65 Type 2 diabetes mellitus with hyperglycemia (principal); J44.9 Chronic obstructive pulmonary disease, unspecified; F41.9 Anxiety disorder, unspecified; I48.91 Unspecified atrial fibrillation; E78.5 Hyperlipidemia, unspecified; J30.2 Other seasonal allergic rhinitis; I11.0 Hypertensive heart disease with heart failure; I50.9 Heart failure, unspecified; G62.9 Polyneuropathy, unspecified; K21.9 Gastro-esophageal reflux disease without esophagitis; E55.9 Vitamin D deficiency, unspecified; F17.200 Nicotine dependence, unspecified, uncomplicated; Z79.899 Other long term (current) drug therapy; Z98.890 Other specified postprocedural states; Z88.0 Allergy status to penicillin ==